=== PATIENT | female | born 1990 | race Caucasian/White ===

== ENCOUNTER 2018-11-26 17:49 | Emergency (ER) | payer SELFPAY ==
[~2018-11-26] VITALS: Ht 167.6 cm; Wt 85.3 kg
[2018-11-26 18:10] VITALS: BP_SYST 116
[2018-11-26] MEDS ORDERED: ACETAMINOPHEN 325 MG TABLET PO ONE (18:45)
[2018-11-26 22:25] VITALS: BP_SYST 117
== END 2018-11-26 22:26 | disposition home or self-care (01) ==
LOC: SED 17:49
DX: R10.9 Unspecified abdominal pain (principal)
CPT/HCPCS: 36415; 74018; 86710; 99284

== ENCOUNTER 2018-11-27 12:21 | Emergency (ER) | payer SELFPAY ==
[~2018-11-27] VITALS: Ht 172.7 cm; Wt 85.3 kg
[2018-11-27 12:21] VITALS: BP_SYST 101
[2018-11-27 13:34] LABS: HEMATOCRIT 38.9 % (36-48); HEMOGLOBIN 13.4 g/dL (12.0-16.0); LYMPHOCYTES % (AUTO) 10.6 % (20.5-51.5); MEAN CORPUSCULAR HEMOGLOBIN 32 pg (27-31); MEAN CORPUSCULAR HGB CONC 34 % (32-36); MEAN CORPUSCULAR VOLUME 94 fL (79.0-98.0); NEUTROPHILS % (AUTO) 81.8 % (40.0-70.0); PLATELET COUNT (AUTO) 188 K/uL (130-430); RED BLOOD CELL COUNT(AUTO) 4.14 MIL/uL (4.2-6.2); RED CELL DISTRIBUTION WIDTH 12.4 % (9.0-15.0); WHITE BLOOD COUNT (AUTO) 10.7 K/uL (4.8-10.8)
[2018-11-27 13:35] LABS: BASOPHILS % (AUTO) 0.3 % (0.0-2.0); EOSINOPHILS % (AUTO) 0.1 % (0.0-4.0); LYMPHOCYTES # (AUTO) 1.1 K/uL (1.0-5.5); MONOCYTES # (AUTO) 0.8 K/uL (0.0-1.0); MONOCYTES % (AUTO) 7.2 % (1.7-9.3); NEUTROPHILS # (AUTO) 8.8 K/uL (1.8-7.7)
[2018-11-27 13:39] LABS: BILIRUBIN,URINE NEGATIVE (NEGATIVE); BLOOD, URINE 1+ (NEGATIVE); CLARITY/URINE HAZY (CLEAR); COLOR,URINE YELLOW (YELLOW); GLUCOSE,URINE NEGATIVE (NEGATIVE); KETONES,URINE NEGATIVE (NEGATIVE); LEUKOCYTE ESTERASE ,URINE 3+ (NEGATIVE); NITRITE, URINE NEGATIVE (NEGATIVE); PROTEIN URINE 1+ (NEGATIVE)
[2018-11-27 13:40] LABS: CALCIUM 8.7 mg/dL (8.4-11.0); CREATININE 0.9 mg/dL (0.55-1.30); POTASSIUM 3.4 mmol/L (3.5-5.1)
[2018-11-27 13:47] LABS: ALBUMIN 3.3 g/dL (3.4-4.8); TOTAL BILIRUBIN 0.7 mg/dL (0.0-1.0)
[2018-11-27 13:56] LABS: BACTERIA,URINE MODERATE /HPF (None Seen); WBC,URINE 80-100 /HPF (0-3)
[2018-11-27] MEDS ORDERED: cefTRIAXone 1 GM VIAL IM ONE (14:00)
[2018-11-27] MEDS ORDERED: cefTRIAXone 1 GM in LIDOCAINE 1%, 20 ML MDV 2.1 ML IM ONE (14:00)
[2018-11-27] MEDS ORDERED: ONDANSETRON 4 MG ODT TAB PO ONE (14:30)
[2018-11-27 14:32] VITALS: BP_SYST 120
== END 2018-11-27 14:32 | disposition home or self-care (01) ==
LOC: SED 12:21
DX: K59.00 Constipation, unspecified (principal); E87.6 Hypokalemia; N39.0 Urinary tract infection, site not specified
CPT/HCPCS: 36415; 74018; 76700; 80053; 81000; 81025; 83690; 85025; 87086; 87186; 96372; 99284; J0696; J2001